=== PATIENT | male | born 1945 | race Two or more races ===

== ENCOUNTER 2019-05-06 19:53 | Emergency (ER) | payer MEDICARE, MEDICAID ==
[~2019-05-06] VITALS: Ht 160 cm; Wt 77.1 kg
--- NOTE | 2019-05-06 20:09 | NUR ---
ED Nurse Note: Pt from Street and c/o ETOH by EMS. Pt is AO 3~4 times, VSS, on room air no distress. ERMD seen Pt at bedside.
[2019-05-06 20:10] VITALS: BP 100/65
--- NOTE | 2019-05-06 20:32 | NUR ---
ED Nurse Note: Blood and urine sample sent to lab.
[2019-05-06 20:49] LABS: ANION GAP 10 mmol/L (5-15); BLOOD UREA NITROGEN 9 mg/dL (7-18); CALCIUM 9.2 MG/DL (8.5-10.1); CARBON DIOXIDE 27 MMOL/L (21-32); CHLORIDE 101 MMOL/L (98-107); CREATININE 1.2 MG/DL (0.55-1.30); POTASSIUM 3.2 MMOL/L (3.5-5.1); SODIUM 138 MMOL/L (136-145)
[2019-05-06 20:50] LABS: BASOPHILS % (AUTO) 0.7 % (0.0-2.0); EOSINOPHILS % (AUTO) 1.3 % (0.0-3.0); HEMATOCRIT 35.4 % (42.0-52.0); MEAN CORPUSCULAR VOLUME 103 FL (80-99); MONOCYTES % (AUTO) 16.8 % (1.0-10.0); NEUTROPHILS % (AUTO) 39.2 % (45.0-75.0); PLATELET COUNT 160 K/UL (150-450); RED BLOOD COUNT 3.45 M/UL (4.70-6.10); RED CELL DISTRIBUTION WIDTH 13.2 % (11.6-14.8); WHITE BLOOD COUNT 6.1 K/UL (4.8-10.8)
[2019-05-06 20:55] LABS: ALANINE AMINOTRANSFERASE 57 U/L (12-78); ALBUMIN 3.6 G/DL (3.4-5.0); ALKALINE PHOSPHATASE 108 U/L (46-116); ASPARTATE AMINO TRANSFERASE 67 U/L (15-37); BILIRUBIN,TOTAL 0.3 MG/DL (0.2-1.0)
--- NOTE | 2019-05-06 21:29 | Emergency Room Report ---
History of Present Illness General Chief Complaint: Alcohol Intoxication Source: Patient, EMS (Bryan Shea MD) Present Illness HPI 73-year-old male presents ED for evaluation. Brought in by EMS. Found wandering the streets. Bystanders called 911. admits to EtOH. Denies drug use. Hitting his head or LOC. Has abdominal pain nausea or vomiting. No other aggravating relieving factors. Denies any other associated symptoms (Bryan Shea MD) Allergies: Coded Allergies: UNABLE TO ASSESS (Unverified , 05/06/19) Patient History Past Medical History: DM Past Surgical History: none Pertinent Family History: none Social History: Denies: smoking, alcohol use, drug use Immunizations: UTD Reviewed Nursing Documentation: PMH: Agreed; PSxH: Agreed (Bryan Shea MD) Nursing Documentation-PMH Hx Diabetes: Yes (Bryan Shea MD) Review of Systems All Other Systems: limited (Bryan Shea MD) Physical Exam Vital Signs Date Time Temp Pulse Resp B/P (MAP) Pulse Ox O2 Delivery O2 Flow Rate FiO2 05/06/19 19:49 98.8 93 18 102/60 (74) 96 Room Air Sp02 EP Interpretation: reviewed, normal General Appearance: no apparent distress, GCS 15, non-toxic, other - intoxicated Head: normocephalic, atraumatic Eyes: bilateral eye normal inspection, bilateral eye PERRL ENT: hearing grossly normal, normal pharynx, no angioedema, normal voice Neck: full range of motion, supple/symm/no masses Respiratory: chest non-tender, lungs clear, normal breath sounds, speaking full sentences Cardiovascular #1: regular rate, rhythm, no edema Cardiovascular #2: 2+ carotid (R), 2+ carotid (L), 2+ radial (R), 2+ radial (L) , 2+ dorsalis pedis (R), 2+ dorsalis pedis (L) Gastrointestinal: normal bowel sounds, non tender, soft, non-distended, no guarding, no rebound Rectal: deferred Genitourinary: normal inspection, no CVA tenderness Musculoskeletal: back normal, gait/station normal, normal range of motion, non- tender Neurologic: other - intoxicated Psychiatric: other - intoxicated Reflexes: 3+ bicep (R), 3+ bicep (L), 3+ tricep (R), 3+ tricep (L), 3+ knee (R) , 3+ knee (L) Lymphatic: no adenopathy (Bryan Shea MD) Medical Decision Making Homeless Attestation I, The treating physician Dr. Shea, have assessed and agrees that patient is medically stable for discharge to an outpatient disposition. (Bryan Shea MD) Diagnostic Impression: Primary Impression: Acute alcoholic intoxication Qualified Codes: F10.920 - Alcohol use, unspecified with intoxication, uncomplicated Labs Test 05/06/19 20:30 White Blood Count 6.1 K/UL (4.8-10.8) Red Blood Count 3.45 M/UL (4.70-6.10) Hemoglobin 12.0 G/DL (14.2-18.0) Hematocrit 35.4 % (42.0-52.0) Mean Corpuscular Volume 103 FL (80-99) Mean Corpuscular Hemoglobin 34.7 PG (27.0-31.0) Mean Corpuscular Hemoglobin Concent 33.8 G/DL (32.0-36.0) Red Cell Distribution Width 13.2 % (11.6-14.8) Platelet Count 160 K/UL (150-450) Mean Platelet Volume 5.3 FL (6.5-10.1) Neutrophils (%) (Auto) 39.2 % (45.0-75.0) Lymphocytes (%) (Auto) 42.0 % (20.0-45.0) Monocytes (%) (Auto) 16.8 % (1.0-10.0) Eosinophils (%) (Auto) 1.3 % (0.0-3.0) Basophils (%) (Auto) 0.7 % (0.0-2.0) Sodium Level 138 MMOL/L (136-145) Potassium Level 3.2 MMOL/L (3.5-5.1) Chloride Level 101 MMOL/L (98-107) Carbon Dioxide Level 27 MMOL/L (21-32) Anion Gap 10 mmol/L (5-15) Blood Urea Nitrogen 9 mg/dL (7-18) Creatinine 1.2 MG/DL (0.55-1.30) Estimat Glomerular Filtration Rate mL/min (>60) Glucose Level 124 MG/DL (74-106) Calcium Level 9.2 MG/DL (8.5-10.1) Total Bilirubin 0.3 MG/DL (0.2-1.0) Aspartate Amino Transf (AST/SGOT) 67 U/L (15-37) Alanine Aminotransferase (ALT/SGPT) 57 U/L (12-78) Alkaline Phosphatase 108 U/L (46-116) Total Protein 7.2 G/DL (6.4-8.2) Albumin 3.6 G/DL (3.4-5.0) Globulin 3.6 g/dL Albumin/Globulin Ratio 1.0 (1.0-2.7) Salicylates Level 0.6 ug/mL (2.8-20) Urine Opiates Screen Negative (NEGATIVE) Acetaminophen Level < 2 MCG/ML (10-30) Urine Barbiturates Screen Negative (NEGATIVE) Phencyclidine (PCP) Screen Negative (NEGATIVE) Urine Amphetamines Screen Negative (NEGATIVE) Urine Benzodiazepines Screen Negative (NEGATIVE) Urine Cocaine Screen Negative (NEGATIVE) Urine Marijuana (THC) Screen Negative (NEGATIVE) Serum Alcohol 304 mg/dL (Bryan Shea MD) ER Course This patient was signed out to me. He presents with alcohol intoxication. He slept through the night and now awake and wants to go home. He is not homeless. No suicidal thoughts or homicidal thoughts. No other issues. (Mikhail Rush MD) Last Vital Signs Date Time Temp Pulse Resp B/P (MAP) Pulse Ox O2 Delivery O2 Flow Rate FiO2 05/06/19 20:10 98.5 90 18 100/65 96 Room Air Status: improved (Bryan Shea MD) Status: improved (Mikhail Rush MD) Disposition: HOME, SELF-CARE Condition: Stable Patient Instructions: Alcohol Intoxication, [id number] Additional Instructions: Stop drinking to excess. Follow-up with your doctor in 7 days. Return if worse. Bryan Shea MD May 06, 2019 21:29 Mikhail Rush MD May 07, 2019 03:30
[2019-05-07] VITALS: BP 110/68
--- NOTE | 2019-05-07 | NUR ---
ED Nurse Note: Pt woke up and states he havn't eat anything for dinner. Snack food provide.
[2019-05-07 02:30] VITALS: BP 108/72
--- NOTE | 2019-05-07 02:30 | NUR ---
ED Nurse Note: Pt provide physical address and states he is not homeless, VSS. Update Pt address.
--- NOTE | 2019-05-07 04:37 | NUR ---
ER Nurse Note: Pt asleep, no signs of distress, VSS, stable. Pt was given food, drink, urinal. Pt is calm, cooperative, comfortable. Chest rise and fall noted; no resp distress. Pending discharge when pt is stable and awake. All safety measures met; will continute to [facility].
[2019-05-07 04:39] VITALS: BP 110/70
[2019-05-07 06:00] VITALS: BP 110/70
--- NOTE | 2019-05-07 06:00 | NUR ---
ER Nurse Note: Pt seen, treated, medically cleared for discharge by ERMD. Discharge instuctions given with repeat verbalization by pt. Emphasized to follow up with primay care provider. All orders completed per ERMD orders. Pt a&ox4, VSS, no signs of distress. ID band removed. All questions answered per pt's questions. Pt left with all belongings, left with own transportation; left with steady gait.
== END 2019-05-07 06:00 | disposition home or self-care (01) ==
LOC: EDBD 19:53 → EMR 22:26
DX: F10.129 Alcohol abuse with intoxication, unspecified (principal); R10.9 Unspecified abdominal pain; R11.2 Nausea with vomiting, unspecified; E11.9 Type 2 diabetes mellitus without complications
CPT/HCPCS: 36415; 80053; 80307; 85025; 96360; 99284; G0480; 80329